=== PATIENT | male | born 1980 | race Caucasian/White ===

== ENCOUNTER 2017-02-19 16:52 | Emergency (ER) | payer MEDICAID ==
[2017-02-19 18:21] VITALS: BP 117/77
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
--- NOTE | 2017-02-19 20:19 | RAD ---
INDICATION: Injury COMPARISON: None TECHNIQUE: AP, lateral, and oblique views were obtained. FINDINGS: The bony structures, joint spaces, and soft tissues are normal for age. IMPRESSION: NEGATIVE EXAMINATION.
== END 2017-02-19 20:34 | disposition home or self-care (01) ==
LOC: UCEAST 16:52
DX: S06.0X0A Concussion without loss of consciousness, initial encounter (principal); S50.01XA Contusion of right elbow, initial encounter; Y04.0XXA Assault by unarmed brawl or fight, initial encounter; Y92.89 Other specified places as the place of occurrence of the external cause
CPT/HCPCS: 99202; G0463

== ENCOUNTER 2017-02-24 11:49 | Emergency (ER) | payer MEDICAID, OTHER ==
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
[2017-02-24] MEDS ORDERED: NS 0.9% 1000 ML* 1,000 ML IV ONE (15:07)
[2017-02-24] MEDS ORDERED: Ketorolac INJ* 30 MG/ML 1 ML VIAL IV PUSH ONE (15:07)
[2017-02-24 15:51] LABS: Hematocrit 45 % (42-52); Hemoglobin 15.3 g/dl (14.0-18.0); Mean Corpuscular HGB Conc 34 g/dl (31-36); Mean Corpuscular Hemoglobin 29 pg (27-31); Mean Corpuscular Volume 86 fL (80-94); Mean Platelet Volume 9 um3 (7.4-10.4); Red Blood Count 5.26 10^6/ul (4.0-5.4); Red Cell Distribution Width 13 % (10.5-15); White Blood Count 5.3 10^3/ul (3.5-10.8)
[2017-02-24 16:15] LABS: ALT 11 U/L (7-52); AST 12 U/L (13-39); Albumin 4.3 g/dL (3.2-5.2); Alkaline Phosphatase 49 U/L (34-104); Anion Gap 7 mmol/L (2-11); BUN/Creatinine Ratio 17.5 (8-20); Blood Urea Nitrogen 18 mg/dL (6-24); C Reactive Protein < 1.00 mg/L (< 5.00); CO2 Carbon Dioxide 26 mmol/L (22-32); Calcium 9.3 mg/dL (8.6-10.3); Chloride 108 mmol/L (101-111); Creatine Kinase 55 U/L (10-223); EGFR African American 104.5 (>60); EGFR Non-African American 81.3 (>60); Globulin 2.8 g/dL (2-4); Glucose 96 mg/dL (70-100); Potassium 3.8 mmol/L (3.5-5.0); Sodium 141 mmol/L (133-145); Total Protein 7.1 g/dL (6.4-8.9)
[2017-02-24 17:08] VITALS: BP 114/73
[2017-02-24 17:34] LABS: Erythrocyte Sed Rate 8 mm/Hr (0-14)
== END 2017-02-24 17:10 | disposition home or self-care (01) ==
LOC: ED 11:49
DX: M50.30 Other cervical disc degeneration, unspecified cervical region (principal)
CPT/HCPCS: 36415; 70450; 72125; 80053; 82550; 83605; 84484; 85025; 85610; 85652; 85730; 86140; 87040; 87502; 93005; 96374; 99283; J1885

== ENCOUNTER 2017-08-23 17:09 | Emergency (ER) | payer OTHER ==
[2017-08-23] MEDS ORDERED: NS 0.9% 1000 ML*IV.FLUID IV ONE (17:49)
[2017-08-23] MEDS ORDERED: Ibuprofen TAB* 800 MG PO ONE (18:15)
[2017-08-23 18:40] LABS: Hematocrit 42 % (42-52); Hemoglobin 14.9 g/dl (14.0-18.0); Mean Corpuscular HGB Conc 36 g/dl (31-36); Mean Corpuscular Hemoglobin 31 pg (27-31); Mean Corpuscular Volume 86 fL (80-94); Mean Platelet Volume 9 um3 (7.4-10.4); Red Blood Count 4.84 10^6/ul (4.0-5.4); Red Cell Distribution Width 12 % (10.5-15); White Blood Count 6.9 10^3/ul (3.5-10.8)
[2017-08-23 18:46] LABS: Comments Flag Yes
--- NOTE | 2017-08-23 18:51 | ED ---
HPI Febrile Illness - HPI Summary HPI Summary: 37M presents with fever and cough since Monday. He states that his appetite has been decreased. He denies any nausea, vomiting, abdominal pain, diarrhea, neck stiffness, or photophobia. He admits to sinus congestion. He denies any sore throat. He admits to SOB but denies any chest pain. He has been taking tamiflu for his symptoms. He admits to weakness. He admits to a headache. He states he has not been able to keep his fever under control. The rest of his family is sick. He has not history of COPD, asthma, CHF or DM. He saw his primary and had a negative flu. - History of Current Complaint Chief Complaint: EDFluSymptoms Time Seen by Provider: 08/23/17 17:49 Pain Intensity: 7 - Allergy/Home Medications Allergies/Adverse Reactions: Allergies Allergy/AdvReac Type Severity Reaction Status Date / Time No Known Allergies Allergy Verified 08/23/17 17:30 PMH/Surg Hx/FS Hx/Imm Hx Endocrine/Hematology History: Denies: Hx Anticoagulant Therapy, Hx Diabetes Cardiovascular History: Denies: Hx Myocardial Infarction Sensory History: Denies: Hx Deafness - Surgical History Surgery Procedure, Year, and Place: vasectomy Infectious Disease History: No Infectious Disease History: Denies: Traveled Outside the [place] in Last 30 Days - Family History Known Family History: Positive: Hypertension - Social History Alcohol Use: Occasionally Substance Use Type: Reports: None Smoking Status (MU): Never Smoked Tobacco Review of Systems Positive: Fever Negative: Chest Pain Positive: Shortness Of Breath, Cough Negative: Abdominal Pain All Other Systems Reviewed And Are Negative: Yes Physical Exam Triage Information Reviewed: Yes Vital Signs On Initial Exam: Initial Vitals Temp Pulse Resp BP Pulse Ox 102.2 F 115 18 123/68 95 08/23/17 17:21 08/23/17 17:21 08/23/17 17:21 08/23/17 17:21 08/23/17 17:21 Vital Signs Reviewed: Yes Appearance: Positive: Ill-Appearing Skin: Positive: Warm, Dry Head/Face: Positive: Normal Head/Face Inspection Eyes: Positive: Normal, EOMI, MARQUES, Conjunctiva Clear ENT: Positive: Pharynx normal, Nasal congestion, TMs normal Neck: Positive: Supple, Nontender, No Lymphadenopathy. Negative: Nuchal Rigidity Respiratory/Lung Sounds: Positive: Clear to Auscultation, Breath Sounds Present Cardiovascular: Positive: Normal, RRR Abdomen Description: Positive: Nontender, Soft Bowel Sounds: Positive: Present Musculoskeletal: Positive: Normal Neurological: Positive: Normal Psychiatric: Positive: Normal - Cindi Coma Scale Coma Scale Total: 15 Diagnostics - Vital Signs Vital Signs Temp Pulse Resp BP Pulse Ox 08/23/17 18:00 123 29 131/75 95 08/23/17 17:46 109 25 95 08/23/17 17:44 125/74 08/23/17 17:21 102.2 F 115 18 123/68 95 - Laboratory Lab Results: Lab Results 08/23/17 Range/Units 18:30 WBC 6.9 (3.5-10.8) 10^3/ul RBC 4.84 (4.0-5.4) 10^6/ul Hgb 14.9 (14.0-18.0) g/dl Hct 42 (42-52) % MCV 86 (80-94) fL MCH 31 (27-31) pg MCHC 36 (31-36) g/dl RDW 12 (10.5-15) % Plt Count 130 L (150-450) 10^3/ul MPV 9 (7.4-10.4) um3 Neut % (Auto) 84.2 H (38-83) % Lymph % (Auto) 7.0 L (25-47) % [place] % (Auto) 7.7 (1-9) % Eos % (Auto) 0 (0-6) % Baso % (Auto) 1.1 (0-2) % Absolute Neuts (auto) 5.8 (1.5-7.7) 10^3/ul Absolute Lymphs (auto) 0.5 L (1.0-4.8) 10^3/ul Absolute Monos (auto) 0.5 (0-0.8) 10^3/ul Absolute Eos (auto) 0 (0-0.6) 10^3/ul Absolute Basos (auto) 0.1 (0-0.2) 10^3/ul Absolute Nucleated RBC 0 10^3/ul Nucleated RBC % 0 Result Diagrams: 08/23/17 18:30 08/23/17 18:30 Lab Statement: Any lab studies that have been ordered have been reviewed, and results considered in the medical decision making process. - Radiology chest Xray Interpretation: Positive (See Comments) - IMPRESSION: CHEST X-RAY FINDINGS ARE MOST CONSISTENT WITH PNEUMONIA LOCALIZED TO THE POSTERIOR RIGHT LOWER LOBE. FOLLOW-UP CHEST X-RAY AFTER AN APPROPRIATE COURSE OF THERAPY IS ADVISED AFTER AN APPROPRIATE COURSE OF THERAPY TO ASCERTAIN RESOLUTION. Radiology Interpretation Completed By: Radiologist Re-Evaluation - Re-Evaluation First Eval Re-Evaluation Time: 20:47 Change: Improved Comment: feeling better after fluids, states still SOB so will do resp treatment. Second Eval Re-Evaluation Time: 21:30 Change: Improved Comment: feeling better after resp treatment, HR inc with treatment Course/Dx - Course Course Of Treatment: 37M presents with fever and cough since [place]. He states that his appetite has been decreased. He denies any nausea, vomiting, abdominal pain, diarrhea, neck stiffness, or photophobia. He admits to sinus congestion. He denies any sore throat. He admits to SOB but denies any chest pain. He has been taking tamiflu for his symptoms. He admits to weakness. He admits to a headache. He states he has not been able to keep his fever under control. The rest of his family is sick. He has not history of COPD, asthma, CHF or DM. He saw his primary and had a negative flu. on exam appears ill. lungs CTA. neg meningeal signs. abdomen soft nontender. vitals make is so meets septic criteria. gave fluids. labs normal wbc and lactic. chest xray shows pneumonia. gave dose of levaquin. curb 65 score zero. gave fluids and feeling better. will send home with inhaler, levaquin, and cough medication. patient understand and agrees with plan. - Febrile Illness Differential Diagnoses: Pneumonia, Sepsis, Viremia - Diagnoses Provider Diagnoses: Pneumonia Discharge - Discharge Plan Condition: Good Disposition: HOME Prescriptions: Benzonatate CAP* [Tessalon 100 MG CAP*] 100 mg PO TID PRN #15 cap PRN Reason: Cough Levofloxacin TAB* [Levaquin TAB*] 500 mg PO DAILY #8 tab Patient Education Materials: Pneumonia (ED) Referrals: Damon Lopes MD [Primary Care Provider] - Additional Instructions: Take levaquin once a day for 9 more days Take cough medication up to three tablets a day Use inhaler up to two puffs every 4-6 hours for cough Take Tylenol or ibuprofen for pain and fever every 6 hours Return to ED if develop any new or worsening symptoms
[2017-08-23 18:57] LABS: Albumin 4.6 g/dL (3.2-5.2); BUN/Creatinine Ratio 13.7 (8-20); Calcium 9.1 mg/dL (8.6-10.3); EGFR African American 114.1 (>60); EGFR Non-African American 88.7 (>60); Globulin 3.1 g/dL (2-4); Potassium 3.3 mmol/L (3.5-5.0); Total Protein 7.7 g/dL (6.4-8.9)
--- NOTE | 2017-08-23 19:04 | RAD ---
INDICATION: Cough COMPARISON: Chest x-ray dated March 01, 2009 TECHNIQUE: PA and lateral views of the chest were obtained. FINDINGS: The heart and mediastinum are normal in size and contour. There is patchy density at the medial right lung base seen on the AP view. The lateral view this appears to be localized to the posterior lung. The lungs are otherwise well-aerated. There is no evidence of large pleural effusion. Visualized bones are normal for the patient's age. There is no radiographic evidence of free air beneath the diaphragm IMPRESSION: CHEST X-RAY FINDINGS ARE MOST CONSISTENT WITH PNEUMONIA LOCALIZED TO THE POSTERIOR RIGHT LOWER LOBE. FOLLOW-UP CHEST X-RAY AFTER AN APPROPRIATE COURSE OF THERAPY IS ADVISED AFTER AN APPROPRIATE COURSE OF THERAPY TO ASCERTAIN RESOLUTION.
[2017-08-23] MEDS ORDERED: Levofloxacin 500 MG IVPREMIX(* 500 MG/100 ML BAG IVPB ONE (19:06)
[2017-08-23 19:10] LABS: Mono Internal Control QC Line Present
[2017-08-23] MEDS ORDERED: Potassium Chlor TAB* 10 MEQ TAB.ER PO ONE (19:20)
[2017-08-23] MEDS ORDERED: Acetaminophen TAB* 325 MG PO ONE (20:05)
[2017-08-23 20:15] LABS: Urine Bacteria Absent (Absent); Urine Bilirubin Negative (Negative); Urine Glucose Negative (Negative); Urine Nitrite Negative (Negative)
[2017-08-23] MEDS ORDERED: Albuterol 2.5 MG/3 ML NEB.SOL* (0.083%) INH ONE (20:46)
[2017-08-23] MEDS ORDERED: NS 0.9% 1000 ML* 1,000 ML IV ONE (20:53)
[2017-08-23] MEDS ORDERED: Albuterol HFA INHALER* 8 gm MDI INH ONE (21:27)
[2017-08-23] MEDS ORDERED: Levofloxacin TAB* 500 MG PO ONE (21:27)
[2017-08-23] MEDS ORDERED: Benzonatate CAP* 100 MG PO ONE (21:31)
[2017-08-23 22:03] VITALS: BP 113/61
== END 2017-08-23 22:03 | disposition home or self-care (01) ==
LOC: ED 17:09
DX: J18.9 Pneumonia, unspecified organism (principal); R50.9 Fever, unspecified; R05 Cough; R06.02 Shortness of breath
CPT/HCPCS: 36415; 71020; 80053; 81003; 81015; 83605; 85025; 85610; 85730; 86308; 87040; 94640; 96360; 99283; A9270-GY; J1956